=== PATIENT | female | born 1955 | race African-American/Black ===

== ENCOUNTER 2018-07-19 12:25 | Emergency (ER) | payer OTHER ==
[~2018-07-19] VITALS: Ht 165.1 cm; Wt 64.0 kg
[2018-07-19 12:28] VITALS: Ht 165.1 cm; Wt 64.0 kg
[2018-07-19 13:18] LABS: microscopic required? YES; urine erythrocyte NEGATIVE (NEGATIVE)
[2018-07-19 13:18] LABS: BASOPHIL % 0.7 % (0-2); PLATELET COUNT 264 x10^3mcL (130-400)
[2018-07-19 13:24] LABS: RED CELL DISTRIBUTION WIDTH 19.2 % (11.5-14.5)
[2018-07-19 13:30] LABS: CALCIUM 9.5 mg/dL (8.5-10.1); CARBON DIOXIDE 30.6 mmol/L (21-32); CHLORIDE SERUM 104 mmol/L (98-107); CREATININE SERUM 0.8 mg/dL (0.6-1.0); GFR1 > 60 mL/min; GLUCOSE SERUM 110 mg/dL (74-106); POTASSIUM SERUM 3.6 mmol/L (3.5-5.1); SODIUM SERUM 142 mmol/L (136-145)
[2018-07-19 13:35] LABS: ALKALINE PHOSPHATASE 471 U/L (46-116); ALT/SGPT 48 U/L (14-59); AST/SGOT 90 U/L (15-37); BILIRUBIN TOTAL 0.45 mg/dL (0.20-1.00)
[2018-07-19 13:37] LABS: ALBUMIN 2.8 g/dL (3.4-5.0); TOTAL PROTEIN, SERUM 8.3 g/dL (6.4-8.2)
[2018-07-19 15:29] VITALS: BP 149/90
== END 2018-07-19 15:29 | disposition home or self-care (01) ==
LOC: ED 12:25
PROVIDERS: Emergency Medicine
DX: E11.649 Type 2 diabetes mellitus with hypoglycemia without coma (principal); I10 Essential (primary) hypertension; E78.00 Pure hypercholesterolemia, unspecified; Z98.890 Other specified postprocedural states; Z85.118 Personal history of other malignant neoplasm of bronchus and lung
CPT/HCPCS: 36415; 82962; Q0092